=== PATIENT | male | born 1970 | race Caucasian/White ===

== ENCOUNTER 2016-09-11 13:50 | Emergency (ER) | payer OTHER ==
[2016-09-11 15:31] LABS: RED BLOOD COUNT 5.07 M/UL (4.20-5.50)
[2016-09-11 15:48] LABS: BUN/CREATININE RATIO 17 (0-10)
[2016-09-14 14:11] LABS: WHITE BLOOD COUNT 26.7 K/UL (4.5-11.0)
== END 2016-09-11 20:45 | disposition home or self-care (01) ==
LOC: ER1 13:50
PROVIDERS: Emergency Medicine
DX: S20.219A Contusion of unspecified front wall of thorax, initial encounter (principal); J98.11 Atelectasis; D72.829 Elevated white blood cell count, unspecified; W01.0XXA Fall on same level from slipping, tripping and stumbling without subsequent striking against object, initial encounter; Y92.008 Other place in unspecified non-institutional (private) residence as the place of occurrence of the external cause
CPT/HCPCS: 36415; 71020; 80053; 82550; 82553; 83874; 84484; 85025; 85379; 87040; 93005; 96374; 96375; 99285; J1956; J2270; J2405; J7030; J7050; Q9963

== ENCOUNTER → 2020-07-10 | Outpatient (CLI) | payer OTHER ==
[~2020-07-10] MED LIST: IBUPROFEN600 MG PO; KEFLEX CAP 500500 MG PO
== END ==
LOC: KOH-I 10:38
DX: M75.101 Unspecified rotator cuff tear or rupture of right shoulder, not specified as traumatic (principal); S46.911A Strain of unspecified muscle, fascia and tendon at shoulder and upper arm level, right arm, initial encounter; S43.431A Superior glenoid labrum lesion of right shoulder, initial encounter; M19.011 Primary osteoarthritis, right shoulder; X58.XXXA Exposure to other specified factors, initial encounter
CPT/HCPCS: 73221

== ENCOUNTER 2021-11-24 15:59 | Inpatient (IN) | payer OTHER ==
[~2021-11-24] VITALS: Ht 177.8 cm; Wt 90.3 kg
[2021-11-24 16:16] LABS: HEMOGLOBIN 17.5 gm/dl (14.0-17.5); RED BLOOD COUNT 5.63 M/UL (4.20-5.50); WHITE BLOOD COUNT 13.9 K/UL (4.5-11.0)
[2021-11-24 17:09] LABS: BUN/CREATININE RATIO 18 (0-10)
[2021-11-25 04:35] LABS: RED BLOOD COUNT 5.77 M/UL (4.20-5.50); WHITE BLOOD COUNT 15.9 K/UL (4.5-11.0)
[2021-11-25 05:38] LABS: BUN/CREATININE RATIO 17 (0-10)
[2021-11-26 05:12] LABS: HEMOGLOBIN 17.4 gm/dl (14.0-17.5); RED BLOOD COUNT 5.7 M/UL (4.20-5.50); WHITE BLOOD COUNT 15.1 K/UL (4.5-11.0)
[2021-11-26 05:41] LABS: BUN/CREATININE RATIO 20 (0-10)
[2021-11-26] MEDS ORDERED: ASPIRIN EC81 MG PO (13:13)
[2021-11-26] MEDS ORDERED: NICOTINE PATCH1 EAC2 TD (13:13)
[2021-11-26] MEDS ORDERED: ZESTRIL30 MG PO (13:13)
[2021-11-26] MEDS ORDERED: ATORVASTATIN CA40 MG PO (13:13)
[2021-11-26] MEDS ORDERED: PROTONIX 40 MG40 M1 PO (13:13)
== END 2021-11-26 14:55 | disposition home or self-care (01) | DRG 65 ==
LOC: ER1 15:59 → MED SURG 4 18:59 → CDU 18:59 → MED SURG 4 11-25 08:49
PROVIDERS: Student in an Organized Health Care Education/Training Program; ADMIT Internal Medicine
PROC: B24BZZZ Ultrasonography of Heart with Aorta (ICD-10-PCS; principal; 2021-11-25)
DX: I63.9 Cerebral infarction, unspecified (principal); G81.91 Hemiplegia, unspecified affecting right dominant side; I10 Essential (primary) hypertension; Z20.822 Contact with and (suspected) exposure to COVID-19; F17.210 Nicotine dependence, cigarettes, uncomplicated; R26.9 Unspecified abnormalities of gait and mobility; D75.1 Secondary polycythemia; N40.0 Benign prostatic hyperplasia without lower urinary tract symptoms; H49.02 Third [oculomotor] nerve palsy, left eye; H91.92 Unspecified hearing loss, left ear; D75.839 Thrombocytosis, unspecified; H54.60 Unqualified visual loss, one eye, unspecified; Z91.14 Patient's other noncompliance with medication regimen; Z90.81 Acquired absence of spleen; I69.992 Facial weakness following unspecified cerebrovascular disease; Z79.01 Long term (current) use of anticoagulants; Z79.82 Long term (current) use of aspirin; Z82.49 Family history of ischemic heart disease and other diseases of the circulatory system; Z83.3 Family history of diabetes mellitus; Z72.89 Other problems related to lifestyle
CPT/HCPCS: ECHO; 70450; 70496; 70498; 70551; 71045; 80053; 80061; 82550; 82553; 83605; 83735; 84100; 84439; 84443; 84484; 85025; 86140; 92526; 92610; 93005; 93306; 97116-GP-CQ; 97161; 97166; 97530; 99285; G0378; Q9967